=== PATIENT | female | born 1975 | race Caucasian/White ===

== ENCOUNTER 2021-09-09 21:02 | Emergency (ER) | payer MEDICAID ==
[~2021-09-09] VITALS: Ht 127 cm; Wt 68.0 kg
[~2021-09-09 21:02] MED LIST: NITR100C7 PO; OMEP20EC11 PO
[2021-09-09 21:37] VITALS: BP 107/61
[2021-09-09] MEDS ORDERED: NACL 0.9% 1,000 ML IV ONE (21:50)
[2021-09-09] MEDS ORDERED: KETOROLAC 30 MG/ML VIAL IVP ONE (21:50)
--- NOTE | 2021-09-09 22:21 | NUR ---
PATIENT AMBULATED TO BED 12
--- NOTE | 2021-09-09 22:26 | NUR ---
45 YO/F PRESENTS TO ED W C/O BL FLANK PAIN 8/10 INTENSE NON-RAD INT, UPPER BACK PAIN 8/10 INTENSE NON-RAD INT, BLOATING AND FEELING FEVERISH X1 WEEK. PT ALSO REPORTS URINARY FREQUENCY. PT TOOK ADVIL 400MG AT 2200 W MILD RELIEF. DENIES CHEST PAIN, SOB, N/V/D. PT LAYING INBED LOCKED IN LOWEST POSITION. BREATHING EVEN AND UNLABORED. AT BEDSIDE. PMH:GASTRITIS ALLERGIES: DENIES
[2021-09-09 22:32] LABS: EOSINOPHILS % (AUTO) 0.7 % (0.0-4.0); HEMATOCRIT 38.3 % (36-48); HEMOGLOBIN 12.7 g/dL (12.0-16.0); LYMPHOCYTES # (AUTO) 0.8 K/uL (2.5-16.5); LYMPHOCYTES % (AUTO) 18.8 % (20.5-51.1); MEAN CORPUSCULAR HEMOGLOBIN 29 pg (27-31); MEAN CORPUSCULAR HGB CONC 33 g/dL (33-37); MEAN CORPUSCULAR VOLUME 85.9 fL (80-94); MONOCYTES # (AUTO) 0.4 K/uL (0.8-1.0); MONOCYTES % (AUTO) 10.5 % (1.7-9.3); NEUTROPHILS # (AUTO) 2.9 K/uL (1.8-7.7); PLATELET COUNT (AUTO) 133 K/uL (140-450); RED BLOOD CELL COUNT(AUTO) 4.45 MIL/uL (4.20-5.40); WHITE BLOOD COUNT (AUTO) 4.2 K/uL (4.8-10.8)
[2021-09-09 22:57] LABS: APPEARANCE,URINE CLEAR (CLEAR); BILIRUBIN,URINE NEGATIVE (NEGATIVE); BLOOD, URINE 3+ (NEGATIVE); COLOR,URINE YELLOW (YELLOW); LEUKOCYTE ESTERASE ,URINE NEGATIVE (NEGATIVE); NITRITE, URINE NEGATIVE (NEGATIVE); UGLUCOSE NEGATIVE (NEGATIVE)
[2021-09-09 23:00] LABS: ANION GAP 11.4 (8-16); CARBON DIOXIDE 26.9 mmol/L (21-32); CREATININE 0.7 mg/dL (0.6-1.3); POTASSIUM 3.3 mmol/L (3.5-5.1)
[2021-09-09 23:01] LABS: ALBUMIN 3.5 g/dL (3.4-5.0); TOTAL BILIRUBIN 0.2 mg/dL (0.0-1.0)
[2021-09-09 23:15] LABS: WBC,URINE 0-5 /HPF (0-5)
--- NOTE | 2021-09-09 23:33 | NUR ---
PT REPORTS PAIN IMPROVEMENT TO 4/10 .
--- NOTE | 2021-09-10 01:53 | NUR ---
PT REPORTS FEELING BETTER AT THIS TIME.
[2021-09-10] MEDS ORDERED: NAPR-54 PO (03:16)
[2021-09-10] MEDS ORDERED: CEPH-588 PO (03:16)
[2021-09-10 03:30] VITALS: BP 93/59
--- NOTE | 2021-09-10 03:30 | NUR ---
Patient discharged with v/s stable. Written and verbal after care instructions given and explained. Patient alert, oriented and verbalized understanding of instructions. Ambulatory with steady gait. All questions addressed prior to discharge. ID band removed. Patient advised to follow up with PMD. Rx of KEFLEX, NAPROXEN given. Patient educated on indication of medication including possible reaction and side effects. Opportunity to ask questions provided and answered.
== END 2021-09-10 03:30 | disposition home or self-care (01) ==
LOC: MED 21:02
DX: M54.6 Pain in thoracic spine (principal); N39.0 Urinary tract infection, site not specified
CPT/HCPCS: 36415; 71045; 74176; 80053; 81001; 84484; 84703; 85025; 87086; 93005; 96361; 96374; 99285; J1885; J7030; Q0092

== ENCOUNTER 2022-03-08 20:30 | Emergency (ER) | payer MEDICAID ==
[~2022-03-08] VITALS: Ht 165.1 cm; Wt 69.9 kg
[~2022-03-08 20:30] MED LIST changes: +CEPH-588 PO; +NAPR-54 PO
[2022-03-08 20:34] VITALS: BP 115/70
[2022-03-08 20:44] VITALS: BP 115/70
--- NOTE | 2022-03-08 20:46 | NUR ---
PT TAKEN TO BED 2
--- NOTE | 2022-03-08 21:04 | NUR ---
46YR OLD FEMALE BIB SELF C/0 RASH X1DAY. DENIES PAIN PT WAS SEEN IN [facility] ON FOR SAME COMPLIANT. UNKNOWN ALLERGY RASH RETURNED YESTERDAY. ON HECTOR ARMS, LEGS, TRUNK AND FACE. DENIES SOB OR CP. SPO2 100% RA. PT IS A&OX4 SKIN WARM AND DRY RESP EVEN AND UNLABORED. PT ON BEDSIDE O2 MONITOR. HOB ELEVATED. BED AT LOWEST POSITION. PT IS KAZAKH SPEAKING NKDA NO MED HX
--- NOTE | 2022-03-08 22:01 | NUR ---
Dr. Negron examining patient.
[2022-03-08] MEDS ORDERED: FAMOTIDINE 20 MG/2 ML VIAL IVP ONE (22:10)
[2022-03-08] MEDS ORDERED: methylPREDNISolone SS 125 MG in WATER STERILE 2 ML IV ONE (22:10)
[2022-03-08] MEDS ORDERED: diphenhydrAMINE 50 MG/ML VIAL IVP ONE (22:10)
[2022-03-08] MEDS ORDERED: NACL 0.9% 1,000 ML IV ONE (22:10)
[2022-03-08] MEDS ORDERED: DIPH25TA53 PO (22:32)
[2022-03-08] MEDS ORDERED: FAMO-90 PO (22:32)
--- NOTE | 2022-03-08 23:04 | NUR ---
Chart checked and completed.
--- NOTE | 2022-03-08 23:04 | NUR ---
Patient discharged with v/s stable. Written and verbal after care instructions given and explained. Patient alert, oriented and verbalized understanding of instructions. Ambulatory with steady gait. All questions addressed prior to discharge. ID band removed. Patient advised to follow up with PMD. Rx of BENADRYL PEPCID given.
[2022-03-09] MEDS ORDERED: methylPREDNISolone SS 125 MG/2 ML VIAL IVP SCH (07:45)
--- NOTE | 2022-03-10 09:45 | NUR ---
LATE ENTRY- IV NS DISCONTINUED AT 2304.
== END 2022-03-08 23:04 | disposition home or self-care (01) ==
LOC: MED 20:30
DX: L50.9 Urticaria, unspecified (principal)
CPT/HCPCS: 96361; 96374; 96375; 99284; J1200; J3490; J7030